=== PATIENT | female | born 1980 | race Caucasian/White ===

== ENCOUNTER 2023-06-09 18:42 | Outpatient (REF) | payer BC, SELFPAY | END 2023-06-09 18:43 | disposition home or self-care (01) | LOC: LAB 18:42 | PROVIDERS: PCP Nurse Practitioner Family; Visit Provider Otolaryngology | DX: G96.01 Cranial cerebrospinal fluid leak, spontaneous (principal) | CPT/HCPCS: 36415; 86335 ==

== ENCOUNTER 2023-06-16 10:03 | Outpatient (OUT) | payer BC, SELFPAY ==
--- NOTE | 2023-06-16 10:06 | CT_ITS ---
The [address] [address] Patient Name: BELKIS SARAVIA MRN: [id number] date: 1980 Sex: F Assigned Patient Location: CT Current Patient Location: Accession/Order Number: [id number] Exam Date: 06/16/2023 10:16 Report Date: 06/17/2023 09:07 At the request of: TANGELA ALVARADO Procedure: CT sinus wo con EXAMINATION: CT sinus wo con HISTORY: Rhinorrhea G96.01 COMPARISON: No relevant comparison available. TECHNIQUE: Axial and Coronal CT images were created without and/or with IV contrast as indicated by examination type. Dose reduction techniques were achieved by using automated exposure control and/or adjustment of mA and/or kV according to patient size and/or use of iterative reconstruction technique. FINDINGS: MAXILLARY SINUSES: No significant mucosal thickening or fluid. Infundibula are patent. No significant anomalous inferior orbital ethmoid ([place]) air cells. ETHMOID SINUSES: Complete opacification of several right ethmoid air cells just posterior to the ostiomeatal complex. No fluid levels. SPHENOID SINUSES: No significant mucosal thickening or fluid. Sphenoethmoidal recesses are patent. No bony dehiscence. FRONTAL SINUSES: No significant mucosal thickening or fluid. Frontal recesses are patent. NASAL FOSSA: No significant deviation of the nasal septum. No alexys bullosa or paradoxical turbinates are identified. OTHER: Negative. Limited views of the skull base and orbits are unremarkable. CT/CT sinus wo con IMPRESSION: 1. Complete opacification of several right ethmoid air cells. Mucosal thickening secondary to focal sinusitis? No fluid levels. 2. Remainder of paranasal sinuses are clear and pathways are patent. Electronically authenticated by: DELVIN VALDEZ Date: 06/17/2023 09:07
== END 2023-06-16 10:04 | disposition home or self-care (01) ==
LOC: CT 10:03
PROVIDERS: PCP Nurse Practitioner Family; Visit Provider Otolaryngology
DX: G96.01 Cranial cerebrospinal fluid leak, spontaneous (principal); J34.89 Other specified disorders of nose and nasal sinuses
CPT/HCPCS: 70486